=== PATIENT | male | born 1985 | race African-American/Black ===

== ENCOUNTER 2018-10-30 15:33 | Inpatient (IN) | payer OTHER ==
[2018-10-30 15:59] VITALS: BMI 31.1
--- NOTE | 2018-10-30 18:01 | HP ---
COWS - Scale Resting Pulse: 0= [place] 80 or Below Sweatin= Chills/Flushing Restless Observation: 1= Difficult to Sit Still Pupil Size: 1= Pupils >than Normal Bone or Joint Aches: 1= Mild Discomfort Runny Nose/ Eye Tearin= Nasal Congestion GI Upset > 30mins: 1= Stomach Cramp Tremor Observation: 1= Tremor [place], Not Seen Yawning Observation: 1= 1-2x During Session Anxiety or Irritability: 1=Feels Anxious/Irritable Goose Flesh Skin: 3=Piloerection COWS Score: 12 CIWA Score - Admission Criteria OASAS Guidelines: Admission for Medically Managed Detox: Requires at least one of the followin. CIWA greater than 12 2. Seizures within the past 24 hours 3. Delirium tremens within the past 24 hours 4. Hallucinations within the past 24 hours 5. Acute intervention needed for co occurring medical disorder 6. Acute intervention needed for co occurring psychiatric disorder 7. Severe withdrawal that cannot be handled at a lower level of care (continued vomiting, continued diarrhea, abnormal vital signs) requiring intravenous medication and/or fluids 8. Admission ROS [facility] - HPI Chief Complaint: heroin detox 33 yo with no medical problems, no meds, here b/c foreign policy officer asked him to come or risk [facility]. Pt states uses IV heroin every day- 1 bundle/day. Cocaine- 1-2 bags/day, denies other drug or alcohol use. LAst use yesterday- Allergies/Adverse Reactions: Allergies Allergy/AdvReac Type Severity Reaction Status Date / Time No Known Drug Allergies Allergy Verified 10/30/18 15:54 lactose AdvReac Verified 10/30/18 15:54 - Ebola screening Have you traveled outside of the country in the last 21 days: No (N) Have you had contact with anyone from an Ebola affected area: No Do you have a fever: No Patient History - Patient Medical History Hx Anemia: No Hx Asthma: No Hx Chronic Obstructive Pulmonary Disease (COPD): No Hx Cardiac Disorders: No Hx Hypertension: No Hx Seizures: No Hx Diabetes: No Hx Gastrointestinal Disorders: No Hx Genitourinary Disorders: No Hx Sexually Transmitted Disorders: No Hx Renal Disease (ESRD): No Hx Depression: No Hx Suicide Attempt: No Hx Schizophrenia: No - Patient Surgical History Past Surgical History: No Hx Neurologic Surgery: No Hx Cataract Extraction: No Hx Cardiac Surgery: No Hx Lung Surgery: No Hx Breast Surgery: No Hx Breast Biopsy: No Hx Abdominal Surgery: No Hx Appendectomy: No Hx Cholecystectomy: No Hx Genitourinary Surgery: No Hx Section: No Hx Orthopedic Surgery: No Anesthesia Reaction: No - PPD History Previous Implant?: Yes Date: 05/01/12 PPD to be Administered?: Yes - Smoking Cessation Smoking history: Current every day smoker Have you smoked in the past 12 months: Yes Aproximately how many cigarettes per day: 10 Hx Chewing Tobacco Use: No Initiated information on smoking cessation: Yes 'Breaking Loose' booklet given: 10/30/18 - Substance & Tx. History Hx Alcohol Use: No Hx Substance Use: Yes Substance Use Type: Cocaine, Heroin Hx Substance Use Treatment: Yes - Substances abused Heroin Substance route: Injection Frequency: Daily Amount used: 7bags Age of first use: 20 Date of last use: 10/30/18 Family Disease History - Family Disease History Family History: Denies (pt denies) Admission Physical Exam S - Vital Signs Vital Signs: Vital Signs - 24 hr 10/30/18 15:52 Temperature 97.1 F L Pulse Rate 58 L Respiratory 20 Rate Blood Pressure 123/82 - Physical General Appearance: Yes: Within Normal Limits HEENTM: Yes: Within Normal Limits, Other Respiratory: Yes: Within Normal Limits, Lungs Clear (eyes suffused- pt states did not sleep for many days) Neck: Yes: Within Normal Limits Cardiology: Yes: Within Normal Limits, Regular Rate, S1, S2 Abdominal: Yes: Within Normal Limits, Normal Bowel Sounds, Non Tender, Flat Back: Yes: Within Normal Limits Musculoskeletal: Yes: Within Normal Limits, full range of Motion Extremities: Yes: Within Normal Limits Neurological: Yes: Within Normal Limits, food service representative II-XII NML intact, Fully Oriented, Alert, Disoriented Lymphatic: Yes: Within Normal Limits - Diagnostic (1) Opioid use disorder Current Visit: Yes Status: Acute (2) Cocaine abuse Current Visit: No Status: Active Breathalyzer - Breathalyzer Breathalyzer: 0 Urine Drug Screen - Test Device Lot number: [id number] Expiration date: 07/18/20 - Control Is test valid?: Yes - Results Drug screen NEGATIVE: No Urine drug screen results: OG-Cocaine, MOP-Opiates, MTD-Methadone Inpatient Rehab Admission - Rehab Decision to Admit Inpatient rehab admission?: No
[2018-10-30] MEDS ORDERED: hydrOXYzine PAMOATE 25 MG CAPSULE (FP) PO PRN (18:03)
[2018-10-30] MEDS ORDERED: MAGNESIUM CITRATE 300 ML BOTTLE PO PRN (18:03)
[2018-10-30] MEDS ORDERED: MAG HYDROX/AL HYDROX/SIMETH 30 ML UNIT-DOSE CUP PO PRN (18:03)
[2018-10-30] MEDS ORDERED: METHOCARBAMOL 500 MG TABLET PO PRN (18:03)
[2018-10-30] MEDS ORDERED: MAGNESIUM HYDROX 2400MG/30ML ORAL SUSPENSION 30 ML CUP PO PRN (18:03)
[2018-10-30] MEDS ORDERED: ACETAMINOPHEN 325 MG TABLET (FP) PO PRN ×2 (18:03)
[2018-10-30] MEDS ORDERED: NICOTINE POLACRILEX 4 MG GUM BUC PRN (18:03)
[2018-10-30] MEDS ORDERED: MENTHOL/PHENOL 1 EACH UD MM PRN (18:03)
[2018-10-30] MEDS ORDERED: BISMUTH SUBSALICYLATE 524 MG/30 ML UD PO PRN (18:03)
[2018-10-30] MEDS ORDERED: IBUPROFEN 400 MG TABLET (FP) PO PRN (18:03)
[2018-10-30] MEDS ORDERED: cloNIDine HCL 0.1 MG TABLET PO PRN (18:05)
[2018-10-30] MEDS: clonazePAM 0.5 MG TABLET PO PRN (19:16)
[2018-10-30] MEDS: THIAMINE HCL 100 MG TABLET (FP) PO SCH (22:36)
[2018-10-30] MEDS: MELATONIN 5 MG TABLETS PO PRN (22:36)
[2018-10-30] MEDS ORDERED: METHADONE HCL 10 MG TABLET (FOR DETOX USE ONLY) PO ONE (23:00)
[2018-10-31 02:20] LABS: URINE APPEARANCE CLEAR; URINE BILIRUBIN NEGATIVE (NEGATIVE); URINE COLOR YELLOW; URINE GLUCOSE (UA) NEGATIVE (NEGATIVE); URINE KETONE NEGATIVE (NEGATIVE); URINE LEUK ESTERASE NEGATIVE (NEGATIVE); URINE NITRITE NEGATIVE (NEGATIVE); URINE PROTEIN NEGATIVE (NEGATIVE); URINE UROBILINOGEN 0.2 mg/dL (0.2-1.0)
[2018-10-31 09:53] LABS: HEMATOCRIT 41.6 % (35.4-49); HEMOGLOBIN 13.6 GM/dL (11.7-16.9); MCH 24.7 pg (25.7-33.7); MCHC 32.7 g/dl (32.0-35.9); MEAN CELL VOLUME 75.4 fl (80-96); MEAN PLT VOLUME 8.5 fl (7.5-11.1); PLATELET COUNT 391 K/MM3 (134-434); RBC 5.52 M/mm3 (4.00-5.60); RDW 17.4 % (11.9-15.9); WHITE BLOOD COUNT 7.6 K/mm3 (4.0-10.0)
[2018-10-31 10:00] LABS: ALBUMIN 3.4 g/dl (3.4-5.0); BILIRUBIN,TOTAL 0.3 mg/dL (0.2-1); CALCIUM 9.1 mg/dL (8.5-10.1); POTASSIUM 4.6 mmol/L (3.5-5.1); TOT PROT 6.8 g/dl (6.4-8.2)
[2018-10-31] MEDS ORDERED: METHADONE HCL 10 MG TABLET (FOR DETOX USE ONLY) PO ONE (10:00)
[2018-10-31] MEDS: PRENATAL VITAMINS W/ FOLIC ACID TABLET (FP) PO SCH (10:21)
[2018-10-31] MEDS: NICOTINE 14 MG/24 HOURS TOPICAL PATCH TD SCH (10:22)
[2018-10-31] MEDS: clonazePAM 0.5 MG TABLET PO PRN ×3 (10:22→22:21)
[2018-10-31] MEDS: hydrOXYzine PAMOATE 25 MG CAPSULE (FP) PO PRN ×3 (10:22→22:21)
--- NOTE | 2018-10-31 11:45 | PN ---
BHS COWS - Scale Resting Pulse: 0= [place] 80 or Below Sweatin= Chills/Flushing Restless Observation: 0= Sits Still Pupil Size: 0= Normal to Room Light Bone or Joint Aches: 1= Mild Discomfort Runny Nose/ Eye Tearin= Nasal Congestion GI Upset > 30mins: 1= Stomach Cramp Tremor Observation of Outstretched Hands: 2= Slight Tremor Visible Yawning Observation: 1= 1-2x During Session Anxiety or Irritability: 2=Irritable/Anxious Goose Flesh Skin: 0=Smooth Skin COWS Score: 9 BHS Progress Note (SOAP) Subjective: feeling better today social with peers on hallway and day room consider aftercare with staff Objective: 10/31/18 11:44 Vital Signs Temperature 98.1 F 10/31/18 09:13 Pulse Rate 75 10/31/18 09:13 Respiratory Rate 18 10/31/18 09:13 Blood Pressure 111/75 10/31/18 09:13 O2 Sat by Pulse Oximetry (%) Laboratory Last Values WBC 7.6 K/mm3 (4.0-10.0) 10/31/18 07:00 RBC 5.52 M/mm3 (4.00-5.60) 10/31/18 07:00 Hgb 13.6 GM/dL (11.7-16.9) 10/31/18 07:00 Hct 41.6 % (35.4-49) 10/31/18 07:00 MCV 75.4 fl (80-96) L 10/31/18 07:00 MCH 24.7 pg (25.7-33.7) L 10/31/18 07:00 MCHC 32.7 g/dl (32.0-35.9) 10/31/18 07:00 RDW 17.4 % (11.9-15.9) H 10/31/18 07:00 Plt Count 391 K/MM3 (134-434) D 10/31/18 07:00 MPV 8.5 fl (7.5-11.1) 10/31/18 07:00 Sodium 141 mmol/L (136-145) 10/31/18 07:00 Potassium 4.6 mmol/L (3.5-5.1) 10/31/18 07:00 Chloride 106 mmol/L (98-107) 10/31/18 07:00 Carbon Dioxide 29 mmol/L (21-32) 10/31/18 07:00 Anion Gap 6 MMOL/L (8-16) L 10/31/18 07:00 BUN 11 mg/dL (7-18) 10/31/18 07:00 Creatinine 1.0 mg/dL (0.55-1.3) 10/31/18 07:00 Est GFR (CKD-EPI)AfAm 115.72 10/31/18 07:00 Est GFR (CKD-EPI)NonAf 99.85 10/31/18 07:00 Random Glucose 85 mg/dL (74-106) 10/31/18 07:00 Calcium 9.1 mg/dL (8.5-10.1) 10/31/18 07:00 Total Bilirubin 0.3 mg/dL (0.2-1) 10/31/18 07:00 AST 13 U/L (15-37) L 10/31/18 07:00 ALT 22 U/L (13-61) 10/31/18 07:00 Alkaline Phosphatase 53 U/L (45-117) 10/31/18 07:00 Total Protein 6.8 g/dl (6.4-8.2) 10/31/18 07:00 Albumin 3.4 g/dl (3.4-5.0) 10/31/18 07:00 Urine Color Yellow 10/31/18 00:00 Urine Appearance Clear 10/31/18 00:00 Urine pH 7.0 (5.0-8.0) 10/31/18 00:00 Ur Specific [place] 1.004 (1.010-1.035) L 10/31/18 00:00 Urine Protein Negative (NEGATIVE) 10/31/18 00:00 Urine Glucose (UA) Negative (NEGATIVE) 10/31/18 00:00 Urine Ketones Negative (NEGATIVE) 10/31/18 00:00 Urine Blood Negative (NEGATIVE) 10/31/18 00:00 Urine Nitrite Negative (NEGATIVE) 10/31/18 00:00 Urine Bilirubin Negative (NEGATIVE) 10/31/18 00:00 Urine Urobilinogen 0.2 mg/dL (0.2-1.0) 10/31/18 00:00 Ur Leukocyte Esterase Negative (NEGATIVE) 10/31/18 00:00 lab noted Assessment: 10/31/18 11:45 withdrawal sx Plan: continue detox discuss medication assisted maintenance treatment program
[2018-10-31 12:02] LABS: RPR REACTIVE 1:2 (NONREACTIVE); TREPONEMA ANTIBODY PREVIOUSLY REACTIVE (NONREACTIVE)
[2018-10-31] MEDS: THIAMINE HCL 100 MG TABLET (FP) PO SCH (22:21)
[2018-11-01] MEDS ORDERED: METHADONE HCL 10 MG TABLET (FOR DETOX USE ONLY) PO ONE (10:00)
[2018-11-01] MEDS: PRENATAL VITAMINS W/ FOLIC ACID TABLET (FP) PO SCH (10:13)
[2018-11-01] MEDS: clonazePAM 0.5 MG TABLET PO PRN ×2 (10:13→22:07)
[2018-11-01] MEDS: NICOTINE 14 MG/24 HOURS TOPICAL PATCH TD SCH (10:13)
[2018-11-01] MEDS: hydrOXYzine PAMOATE 25 MG CAPSULE (FP) PO PRN ×2 (10:13→22:07)
--- NOTE | 2018-11-01 13:25 | PN ---
BHS COWS - Scale Resting Pulse: 1= [place] 81-100 Sweatin= Chills/Flushing Restless Observation: 1= Difficult to Sit Still Pupil Size: 0= Normal to Room Light Bone or Joint Aches: 1= Mild Discomfort Runny Nose/ Eye Tearin= None GI Upset > 30mins: 0= None Tremor Observation of Outstretched Hands: 1= Tremor [place], Not Seen Yawning Observation: 0= None Anxiety or Irritability: 1=Feels Anxious/Irritable Goose Flesh Skin: 0=Smooth Skin COWS Score: 6 BHS Progress Note (SOAP) Subjective: doing ok with methadone detox regimen mild body ache otherwise doing ok Objective: 11/01/18 13:25 Vital Signs Temperature 98.5 F 11/01/18 09:40 Pulse Rate 84 11/01/18 09:40 Respiratory Rate 20 11/01/18 09:40 Blood Pressure 122/79 11/01/18 09:40 O2 Sat by Pulse Oximetry (%) Laboratory Last Values WBC 7.6 K/mm3 (4.0-10.0) 10/31/18 07:00 RBC 5.52 M/mm3 (4.00-5.60) 10/31/18 07:00 Hgb 13.6 GM/dL (11.7-16.9) 10/31/18 07:00 Hct 41.6 % (35.4-49) 10/31/18 07:00 MCV 75.4 fl (80-96) L 10/31/18 07:00 MCH 24.7 pg (25.7-33.7) L 10/31/18 07:00 MCHC 32.7 g/dl (32.0-35.9) 10/31/18 07:00 RDW 17.4 % (11.9-15.9) H 10/31/18 07:00 Plt Count 391 K/MM3 (134-434) D 10/31/18 07:00 MPV 8.5 fl (7.5-11.1) 10/31/18 07:00 Sodium 141 mmol/L (136-145) 10/31/18 07:00 Potassium 4.6 mmol/L (3.5-5.1) 10/31/18 07:00 Chloride 106 mmol/L (98-107) 10/31/18 07:00 Carbon Dioxide 29 mmol/L (21-32) 10/31/18 07:00 Anion Gap 6 MMOL/L (8-16) L 10/31/18 07:00 BUN 11 mg/dL (7-18) 10/31/18 07:00 Creatinine 1.0 mg/dL (0.55-1.3) 10/31/18 07:00 Est GFR (CKD-EPI)AfAm 115.72 10/31/18 07:00 Est GFR (CKD-EPI)NonAf 99.85 10/31/18 07:00 Random Glucose 85 mg/dL (74-106) 10/31/18 07:00 Calcium 9.1 mg/dL (8.5-10.1) 10/31/18 07:00 Total Bilirubin 0.3 mg/dL (0.2-1) 10/31/18 07:00 AST 13 U/L (15-37) L 10/31/18 07:00 ALT 22 U/L (13-61) 10/31/18 07:00 Alkaline Phosphatase 53 U/L (45-117) 10/31/18 07:00 Total Protein 6.8 g/dl (6.4-8.2) 10/31/18 07:00 Albumin 3.4 g/dl (3.4-5.0) 10/31/18 07:00 Urine Color Yellow 10/31/18 00:00 Urine Appearance Clear 10/31/18 00:00 Urine pH 7.0 (5.0-8.0) 10/31/18 00:00 Ur Specific [place] 1.004 (1.010-1.035) L 10/31/18 00:00 Urine Protein Negative (NEGATIVE) 10/31/18 00:00 Urine Glucose (UA) Negative (NEGATIVE) 10/31/18 00:00 Urine Ketones Negative (NEGATIVE) 10/31/18 00:00 Urine Blood Negative (NEGATIVE) 10/31/18 00:00 Urine Nitrite Negative (NEGATIVE) 10/31/18 00:00 Urine Bilirubin Negative (NEGATIVE) 10/31/18 00:00 Urine Urobilinogen 0.2 mg/dL (0.2-1.0) 10/31/18 00:00 Ur Leukocyte Esterase Negative (NEGATIVE) 10/31/18 00:00 RPR Titer Reactive 1:2 (NONREACTIVE) H D 10/31/18 07:00 T.pallidum Ab ([facility]) Previously reactive (NONREACTIVE) 10/31/18 07:00 lab noted Assessment: 11/01/18 13:25 opiate withdrawal sx Plan: continue detox discuss medication assisted maintenance treatment progra
[2018-11-01] MEDS: THIAMINE HCL 100 MG TABLET (FP) PO SCH (22:07)
[2018-11-02] MEDS ORDERED: METHADONE HCL 10 MG TABLET (FOR DETOX USE ONLY) PO ONE (10:00)
[2018-11-02] MEDS: PRENATAL VITAMINS W/ FOLIC ACID TABLET (FP) PO SCH (10:07)
[2018-11-02] MEDS: clonazePAM 0.5 MG TABLET PO PRN (10:07)
[2018-11-02] MEDS: NICOTINE 14 MG/24 HOURS TOPICAL PATCH TD SCH (10:08)
--- NOTE | 2018-11-02 17:48 | PN ---
BHS COWS - Scale Resting Pulse: 1= [place] 81-100 Sweatin= Chills/Flushing Restless Observation: 0= Sits Still Pupil Size: 0= Normal to Room Light Bone or Joint Aches: 0= None Runny Nose/ Eye Tearin= None GI Upset > 30mins: 0= None Tremor Observation of Outstretched Hands: 0= None Yawning Observation: 1= 1-2x During Session Anxiety or Irritability: 0= None Goose Flesh Skin: 0=Smooth Skin COWS Score: 3 BHS Progress Note (SOAP) Subjective: Patient denies current Withdrawal / Detox symptoms and reports that he feels well overall at this time. Objective: PATIENT A & O X 3, OBSERVED AMBULATING ON UNIT UNASSISTED. IN NO ACUTE DISTRESS. 11/02/18 17:47 Vital Signs Temperature 97.2 F L 11/02/18 13:08 Pulse Rate 82 11/02/18 13:08 Respiratory Rate 18 11/02/18 13:08 Blood Pressure 129/84 11/02/18 13:08 O2 Sat by Pulse Oximetry (%) Laboratory Tests 10/31/18 10/31/18 10/31/18 00:00 07:00 07:00 WBC 7.6 RBC 5.52 Hgb 13.6 Hct 41.6 MCV 75.4 L MCH 24.7 L MCHC 32.7 RDW 17.4 H Plt Count 391 D MPV 8.5 Sodium 141 Potassium 4.6 Chloride 106 Carbon Dioxide 29 Anion Gap 6 L BUN 11 Creatinine 1.0 Est GFR (CKD-EPI)AfAm 115.72 Est GFR (CKD-EPI)NonAf 99.85 Random Glucose 85 Calcium 9.1 Total Bilirubin 0.3 AST 13 L ALT 22 Alkaline Phosphatase 53 Total Protein 6.8 Albumin 3.4 Urine Color Yellow Urine Appearance Clear Urine pH 7.0 Ur Specific [place] 1.004 L Urine Protein Negative Urine Glucose (UA) Negative Urine Ketones Negative Urine Blood Negative Urine Nitrite Negative Urine Bilirubin Negative Urine Urobilinogen 0.2 Ur Leukocyte Esterase Negative RPR Titer T.pallidum Ab ([facility]) 10/31/18 07:00 WBC RBC Hgb Hct MCV MCH MCHC RDW Plt Count MPV Sodium Potassium Chloride Carbon Dioxide Anion Gap BUN Creatinine Est GFR (CKD-EPI)AfAm Est GFR (CKD-EPI)NonAf Random Glucose Calcium Total Bilirubin AST ALT Alkaline Phosphatase Total Protein Albumin Urine Color Urine Appearance Urine pH Ur Specific [place] Urine Protein Urine Glucose (UA) Urine Ketones Urine Blood Urine Nitrite Urine Bilirubin Urine Urobilinogen Ur Leukocyte Esterase RPR Titer Reactive 1:2 H D T.pallidum Ab ([facility]) Previously reactive LABS NOTED. PATIENT NOTED TO HAVE REACTIVE RPR (MHATP PREVIOUSLY REACTIVE 1:2). PATIENT REPORTS THAT HE COMPLETED A FULL COURSE OF ANTIBIOTIC THERAPY FOR SYPHILIS IN THE PAST. 11/02/18 18:02 Assessment: 11/02/18 17:48 WITHDRAWAL SYMPTOMS. REACTIVE RPR. 11/02/18 18:03 Plan: CONTINUE DETOX. PATIENT SCHEDULED FOR D/C TOMORROW AM.
[2018-11-02] MEDS: MELATONIN 5 MG TABLETS PO PRN (22:24)
[2018-11-02] MEDS: THIAMINE HCL 100 MG TABLET (FP) PO SCH (22:24)
[2018-11-03] MEDS ORDERED: METHADONE HCL 5 MG TABLET (FOR DETOX USE ONLY) PO ONE (06:00)
[2018-11-03 06:08] VITALS: BP 120/74; PULSE 74; TEMP 97.2
--- NOTE | 2018-11-03 14:09 | DS ---
[facility] Detox Discharge Summary Admission Date: 10/30/18 Discharge Date: 11/03/18 - History Present History: Cocaine Dependence, Opioid Dependence Additional Comments: PT STATES HE HAS NO CURRENT PCP HOWEVER, PT REPORTS HE GOES TO [facility] FOR MEDICAL MANAGEMENT. D/W PATIENT TO CALL HIS INSURANCE WITH THE NUMBER ON CARD FOR ASSIGNMENT OF A PCP NEAR HIM. Pertinent Past History: SEE BELOW - Physical Exam Results Vital Signs: Vital Signs Temperature 97.2 F L 11/03/18 06:07 Pulse Rate 74 11/03/18 06:07 Respiratory Rate 18 11/03/18 06:30 Blood Pressure 120/74 11/03/18 06:07 O2 Sat by Pulse Oximetry (%) Pertinent Admission Physical Exam Findings: WITHDRAWAL SX Laboratory Tests 10/31/18 10/31/18 10/31/18 00:00 07:00 07:00 WBC 7.6 RBC 5.52 Hgb 13.6 Hct 41.6 MCV 75.4 L MCH 24.7 L MCHC 32.7 RDW 17.4 H Plt Count 391 D MPV 8.5 Sodium 141 Potassium 4.6 Chloride 106 Carbon Dioxide 29 Anion Gap 6 L BUN 11 Creatinine 1.0 Est GFR (CKD-EPI)AfAm 115.72 Est GFR (CKD-EPI)NonAf 99.85 Random Glucose 85 Calcium 9.1 Total Bilirubin 0.3 AST 13 L ALT 22 Alkaline Phosphatase 53 Total Protein 6.8 Albumin 3.4 Urine Color Yellow Urine Appearance Clear Urine pH 7.0 Ur Specific [place] 1.004 L Urine Protein Negative Urine Glucose (UA) Negative Urine Ketones Negative Urine Blood Negative Urine Nitrite Negative Urine Bilirubin Negative Urine Urobilinogen 0.2 Ur Leukocyte Esterase Negative RPR Titer T.pallidum Ab ([facility]) 10/31/18 07:00 WBC RBC Hgb Hct MCV MCH MCHC RDW Plt Count MPV Sodium Potassium Chloride Carbon Dioxide Anion Gap BUN Creatinine Est GFR (CKD-EPI)AfAm Est GFR (CKD-EPI)NonAf Random Glucose Calcium Total Bilirubin AST ALT Alkaline Phosphatase Total Protein Albumin Urine Color Urine Appearance Urine pH Ur Specific [place] Urine Protein Urine Glucose (UA) Urine Ketones Urine Blood Urine Nitrite Urine Bilirubin Urine Urobilinogen Ur Leukocyte Esterase RPR Titer Reactive 1:2 H D T.pallidum Ab ([facility]) Previously reactive - Treatment Hospital Course: Detoxed Safely - Medication Discharge Medications: Ambulatory Orders NK [No Known Home Medication] 10/30/18 - Diagnosis (1) Cocaine dependence Status: Active (2) Opioid use disorder Status: Acute - AMA Did Patient Leave Against Medical Advice: No
== END 2018-11-03 09:36 | disposition home or self-care (01) | DRG 773 ==
LOC: YASAS 15:33 → Y3N 18:37
PROVIDERS: ADMIT Surgery; ATTEND Surgery
PROC: HZ2ZZZZ Detoxification Services for Substance Abuse Treatment (ICD-10-PCS; principal; 2018-10-30)
DX: F11.23 Opioid dependence with withdrawal (principal); F14.20 Cocaine dependence, uncomplicated; F17.210 Nicotine dependence, cigarettes, uncomplicated; Z86.19 Personal history of other infectious and parasitic diseases; Z59.0 Homelessness
CPT/HCPCS: 36415; 80053; 81003; 85027; 86593; 86780

== ENCOUNTER 2019-07-12 16:43 | Inpatient (IN) | payer OTHER ==
[2019-07-12 17:31] VITALS: BMI 31.0
--- NOTE | 2019-07-12 19:24 | HP ---
COWS - Scale Resting Pulse: 1= [place] 81-100 Sweatin=Flushed/Facial Moisture Restless Observation: 1= Difficult to Sit Still Pupil Size: 2= Moderately Dilated (Pupils = 5 mm) Bone or Joint Aches: 0= None Runny Nose/ Eye Tearin= Nasal Congestion GI Upset > 30mins: 0= None Tremor Observation: 4= Gross Tremor/Twitching Yawning Observation: 0= None Anxiety or Irritability: 1=Feels Anxious/Irritable Goose Flesh Skin: 0=Smooth Skin COWS Score: 12 CIWA Score - Admission Criteria OASAS Guidelines: Admission for Medically Managed Detox: Requires at least one of the followin. CIWA greater than 12 2. Seizures within the past 24 hours 3. Delirium tremens within the past 24 hours 4. Hallucinations within the past 24 hours 5. Acute intervention needed for co occurring medical disorder 6. Acute intervention needed for co occurring psychiatric disorder 7. Severe withdrawal that cannot be handled at a lower level of care (continued vomiting, continued diarrhea, abnormal vital signs) requiring intravenous medication and/or fluids 8. Admitting History and Physical - Smoking History Smoking history: Current every day smoker Have you smoked in the past 12 months: Yes Aproximately how many cigarettes per day: 10 - Alcohol/Substance Use Hx Alcohol Use: No Admission ROS S - HPI Chief Complaint: "Here to detox from heroin - I want to stop using heroin. Also want to stop the crystal meth" Allergies/Adverse Reactions: Allergies Allergy/AdvReac Type Severity Reaction Status Date / Time No Known Drug Allergies Allergy Verified 07/12/19 17:27 lactose AdvReac Verified 10/30/18 15:54 History of Present Illness: 34 yo presents w/ opiate withdrawal symptoms seeking detox. Last visit Pk Care: 10/2018. States stayed sober for 4 months post discharge. Denies hx overdoses, seizures, blackouts. Heroin use began at age28. Currently using 7 bags - IVDU-daily. Has a Narcan kit at home. Crystal meth use began at age 29. Currently using 1 gram q2days. Nicotine use began at age 17. Smokes 3-4 cig/day. Alcohol use began at age 20. Current use is 1-12 ox beer every other day. Denies alcohol problems. PMHx: Hx + RPR - rx'd in past MHHx: Insomnia. Depression. Kartik thoughts of harming self or others. Does not want to see Psych while here. SHx: Homeless. Unemployed. Denies legal issues Search Terms: Joanie Bagley, 1985 Search Date: 07/12/2019 07:33:34 PM The Drug Utilization Report below displays all of the controlled substance prescriptions, if any, that your patient has filled in the last twelve months. The information displayed on this report is compiled from pharmacy submissions to the Department, and accurately reflects the information as submitted by the pharmacies. This report was requested by: Barbara Cintron | Reference #: [id number] There are no results for the search terms that you entered. Exam Limitations: No Limitations - Ebola screening Have you traveled outside of the country in the last 21 days: No (N) Have you had contact with anyone from an Ebola affected area: No Have you been sick,other than usual withdrawal symptoms: No Do you have a fever: No - Review of Systems Constitutional: Chills, Diaphoresis, Changes in sleep (Difficulty falling asleep ) EENT: reports: Nose Congestion Respiratory: reports: No Symptoms reported Cardiac: reports: No Symptoms Reported GI: reports: No Symptoms Reported : reports: No Symptoms Reported Musculoskeletal: reports: No Symptoms Reported Integumentary: reports: No Symptoms Reported Neuro: reports: Tremors Endocrine: reports: No Symptoms Reported Hematology: reports: No Symptoms Reported Psychiatric: reports: Orientated x3 (Missed date by 1 day), Agitated, Anxious, Depressed (Denies thoughts of harming self or others) Patient History - Patient Medical History Hx Anemia: No Hx Asthma: No Hx Chronic Obstructive Pulmonary Disease (COPD): No Hx Cardiac Disorders: No Hx Hypertension: No Hx Seizures: No Hx Diabetes: No Hx Gastrointestinal Disorders: No Hx Genitourinary Disorders: No Hx Sexually Transmitted Disorders: No Hx Renal Disease (ESRD): No Hx Depression: No Hx Suicide Attempt: No Hx Schizophrenia: No - Patient Surgical History Past Surgical History: No Hx Neurologic Surgery: No Hx Cataract Extraction: No Hx Cardiac Surgery: No Hx Lung Surgery: No Hx Breast Surgery: No Hx Breast Biopsy: No Hx Abdominal Surgery: No Hx Appendectomy: No Hx Cholecystectomy: No Hx Genitourinary Surgery: No Hx Section: No Hx Orthopedic Surgery: No Anesthesia Reaction: No - PPD History Previous Implant?: Yes Documented Results: Negative w/proof Implanted On Prior R Admission?: Yes Date: 11/01/18 PPD to be Administered?: No - Smoking Cessation Smoking history: Current every day smoker Have you smoked in the past 12 months: Yes Aproximately how many cigarettes per day: 10 Hx Chewing Tobacco Use: No Initiated information on smoking cessation: Yes 'Breaking Loose' booklet given: 07/12/19 - Substance & Tx. History Hx Alcohol Use: No Hx Substance Use: Yes Substance Use Type: Heroin Hx Substance Use Treatment: Yes (detox, rehab. Denies MAT) - Substances abused Heroin Substance route: Injection Frequency: Daily Amount used: 7bags Age of first use: 28 Date of last use: 07/11/19 Admission Physical Exam BHS - Vital Signs Vital Signs: Vital Signs - 24 hr 07/12/19 17:28 Temperature 0 F L Pulse Rate 100 H Respiratory 18 Rate Blood Pressure 155/98 - Physical General Appearance: Yes: Nourished, Mild Distress, Tremorous, Irritable, Sweating (Increased facial moisture) HEENTM: Yes: EOMI, Hearing grossly Normal, Normocephalic, Normal Voice, JULISSA ( Pupils = 5 mm), Pharynx Normal Respiratory: Yes: Lungs Clear (Pulse Ox = 99 %), Normal Breath Sounds, No Respiratory Distress Neck: Yes: No masses,lesions,Nodules, Supple Breast: Yes: Breast Exam Deferred Cardiology: Yes: Regular Rhythm, Regular Rate, S1, S2 Abdominal: Yes: Non Tender, Flat, Soft, Increased Bowel Sounds Genitourinary: Yes: Within Normal Limits Back: Yes: Normal Inspection Musculoskeletal: Yes: full range of Motion, Gait Steady Extremities: Yes: Normal Capillary Refill, Normal Range of Motion, Tremors Neurological: Yes: manufacturing associate II-XII NML intact, Fully Oriented, Alert, Motor Strength 5/5, Normal Mood/Affect, Normal Response Integumentary: Yes: Normal Color, Warm, Moist (Increased facial moisture), Track Neri (Old and new track makrs (R) arm. No increased warmth or erythema.) , Other (Superficial scrape (R) clayton w/ pink granualtion tissue. No discharge.) Lymphatic: Yes: Within Normal Limits - Diagnostic (1) Hx of positive serological reaction for syphilis Current Visit: Yes Status: Chronic (2) Nicotine dependence, unspecified, uncomplicated Current Visit: Yes Status: Chronic Qualifiers: Nicotine product type: cigarettes Qualified Code(s): F17.210 - Nicotine dependence, cigarettes, uncomplicated (3) Opioid dependence with withdrawal Current Visit: Yes Status: Acute (4) Methamphetamine dependence Current Visit: Yes Status: Chronic (5) Alcohol abuse Current Visit: Yes Status: Active (6) Abrasion of leg, right Current Visit: Yes Status: Chronic Qualifiers: Encounter type: subsequent encounter Qualified Code(s): S80.811D - Abrasion , right lower leg, subsequent encounter (7) IVDU (intravenous drug user) Current Visit: Yes Status: Chronic Cleared for Admission S - Detox or Rehab [facility] Level of Care: Medically Managed Detox Regimen/Protocol: Methadone Claeared for Rehab Admission: No Breathalyzer - Breathalyzer Breathalyzer: 0 Urine Drug Screen - Test Device Lot number: [id number] Expiration date: 01/16/21 - Control Is test valid?: Yes - Results Drug screen NEGATIVE: No Urine drug screen results: MET-Methamphetamine, AMP-Amphetamines, MOP-Opiates, MDMA-Ecstasy Inpatient Rehab Admission - Rehab Decision to Admit Inpatient rehab admission?: No
[2019-07-12] MEDS ORDERED: MAGNESIUM HYDROX 2400MG/30ML ORAL SUSPENSION 30 ML CUP PO PRN (19:51)
[2019-07-12] MEDS ORDERED: NICOTINE POLACRILEX 2 MG GUM BUC PRN (19:51)
[2019-07-12] MEDS ORDERED: METHOCARBAMOL 500 MG TABLET PO PRN (19:51)
[2019-07-12] MEDS ORDERED: cloNIDine HCL 0.1 MG TABLET PO PRN (19:51)
[2019-07-12] MEDS ORDERED: MAGNESIUM CITRATE 300 ML BOTTLE PO PRN (19:51)
[2019-07-12] MEDS ORDERED: ACETAMINOPHEN 325 MG TABLET (FP) PO PRN ×2 (19:51)
[2019-07-12] MEDS ORDERED: BISMUTH SUBSALICYLATE 524 MG/30 ML UD PO PRN (19:51)
[2019-07-12] MEDS ORDERED: MAG HYDROX/AL HYDROX/SIMETH 30 ML UNIT-DOSE CUP PO PRN (19:51)
[2019-07-12] MEDS ORDERED: MENTHOL/PHENOL 1 EACH UD MM PRN (19:51)
[2019-07-12] MEDS ORDERED: IBUPROFEN 400 MG TABLET (FP) PO PRN (19:51)
[2019-07-12] MEDS ORDERED: METHADONE HCL 10 MG TABLET (FOR DETOX USE ONLY) PO ONE (22:00)
[2019-07-12] MEDS ORDERED: THIAMINE HCL 100 MG TABLET (FP) PO SCH (22:00)
[2019-07-12] MEDS ORDERED: MELATONIN 5 MG TABLETS PO PRN (22:00)
[2019-07-12] MEDS ORDERED: QUEtiapine FUMARATE 50 MG TABLET PO PRN (22:00)
[2019-07-12] MEDS: BACITRACIN 15 GM TUBE TOPICAL OINTMENT TP SCH (22:24)
[2019-07-13 06:18] VITALS: BP 122/77; PULSE 80; TEMP 99.1
[2019-07-13] MEDS ORDERED: METHADONE HCL 10 MG TABLET (FOR DETOX USE ONLY) ONE (09:14)
[2019-07-13] MEDS ORDERED: METHADONE HCL 5 MG TABLET (FOR DETOX USE ONLY) ONE (09:14)
[2019-07-13] MEDS: BACITRACIN 15 GM TUBE TOPICAL OINTMENT TP SCH (09:45)
[2019-07-13] MEDS ORDERED: PRENATAL VITAMINS W/ FOLIC ACID TABLET (FP) PO SCH (10:00)
[2019-07-13] MEDS ORDERED: NICOTINE 14 MG/24 HOURS TOPICAL PATCH TD SCH (10:00)
[2019-07-13] MEDS ORDERED: METHADONE (DETOX) 20 MG, METHADONE (DETOX) 5 MG PO ONE (10:00)
--- NOTE | 2019-07-13 10:37 | EKG ---
Test Reason : Blood Pressure : / mmHG Vent. Rate : 077 BPM Atrial Rate : 077 BPM P-R Int : 140 ms QRS Dur : 100 ms QT Int : 372 ms P-R-T Axes : 060 016 025 degrees QTc Int : 420 ms NORMAL SINUS RHYTHM NORMAL ECG NO PREVIOUS ECGS AVAILABLE Confirmed by RAFI EL MD ([id number]) on 07/13/2019 10:37:25 AM Referred By: Abdullahi Whalen Confirmed By:RAFI EL MD
[2019-07-13 11:16] LABS: HEMATOCRIT 40.5 % (35.4-49); HEMOGLOBIN 13.1 GM/dL (11.7-16.9); MCH 23.9 pg (25.7-33.7); MCHC 32.3 g/dl (32.0-35.9); MEAN CELL VOLUME 73.9 fl (80-96); MEAN PLT VOLUME 8.6 fl (7.5-11.1); PLATELET COUNT 307 K/MM3 (134-434); RBC 5.47 M/mm3 (4.00-5.60); RDW 18.6 % (11.9-15.9)
[2019-07-13 11:35] LABS: ALBUMIN 3.8 g/dl (3.4-5.0); BILIRUBIN,TOTAL 0.5 mg/dL (0.2-1); CALCIUM 9.2 mg/dL (8.5-10.1); TOT PROT 7.8 g/dl (6.4-8.2)
--- NOTE | 2019-07-13 13:23 | DS ---
[facility] Detox Discharge Summary Admission Date: 07/12/19 Discharge Date: 07/13/19 (Pt left AMA) - History Present History: Opioid Dependence Additional Comments: As per H&P: "34 yo presents w/ opiate withdrawal symptoms seeking detox. Last visit [facility]: 10/2018. States stayed sober for 4 months post discharge. Denies hx overdoses, seizures, blackouts. Heroin use began at age28. Currently using 7 bags - IVDU-daily. Has a Narcan kit at home. Crystal meth use began at age 29. Currently using 1 gram q2days. Nicotine use began at age 17. Smokes 3-4 cig/day. Alcohol use began at age 20. Current use is 1-12 ox beer every other day. Denies alcohol problems". Pt left AMA. Pt did not complete the detox protocol. As per medical staff director, pt broke the locker, took his belongings and walked off the unit. Unable to do any assessment at this time. During morning rounds, pt was alert and oriented x3 and in no respiratory distress. Pertinent Past History: h/o heroin use disorder. - Physical Exam Results Vital Signs: Vital Signs Temperature 99.1 F 07/13/19 06:18 Pulse Rate 80 07/13/19 06:18 Respiratory Rate 18 07/13/19 06:18 Blood Pressure 122/77 07/13/19 06:18 O2 Sat by Pulse Oximetry (%) Vital Signs 07/13/19 06:18 Temperature 99.1 F Pulse Rate 80 Respiratory 18 Rate Blood Pressure 122/77 Laboratory Last Values WBC 9.0 K/mm3 (4.0-10.0) 07/13/19 08:00 RBC 5.47 M/mm3 (4.00-5.60) 07/13/19 08:00 Hgb 13.1 GM/dL (11.7-16.9) 07/13/19 08:00 Hct 40.5 % (35.4-49) 07/13/19 08:00 MCV 73.9 fl (80-96) L 07/13/19 08:00 MCH 23.9 pg (25.7-33.7) L 07/13/19 08:00 MCHC 32.3 g/dl (32.0-35.9) 07/13/19 08:00 RDW 18.6 % (11.9-15.9) H 07/13/19 08:00 Plt Count 307 K/MM3 (134-434) D 07/13/19 08:00 MPV 8.6 fl (7.5-11.1) 07/13/19 08:00 Sodium 138 mmol/L (136-145) 07/13/19 08:00 Potassium 4.0 mmol/L (3.5-5.1) 07/13/19 08:00 Chloride 101 mmol/L (98-107) 07/13/19 08:00 Carbon Dioxide 31 mmol/L (21-32) 07/13/19 08:00 Anion Gap 6 MMOL/L (8-16) L 07/13/19 08:00 BUN 13.0 mg/dL (7-18) 07/13/19 08:00 Creatinine 1.0 mg/dL (0.55-1.3) 07/13/19 08:00 Est GFR (CKD-EPI)AfAm 114.91 07/13/19 08:00 Est GFR (CKD-EPI)NonAf 99.15 07/13/19 08:00 Random Glucose 81 mg/dL (74-106) 07/13/19 08:00 Calcium 9.2 mg/dL (8.5-10.1) 07/13/19 08:00 Total Bilirubin 0.5 mg/dL (0.2-1) 07/13/19 08:00 AST 20 U/L (15-37) 07/13/19 08:00 ALT 34 U/L (13-61) 07/13/19 08:00 Alkaline Phosphatase 64 U/L (45-117) 07/13/19 08:00 Total Protein 7.8 g/dl (6.4-8.2) 07/13/19 08:00 Albumin 3.8 g/dl (3.4-5.0) 07/13/19 08:00 Labs noted. Pertinent Admission Physical Exam Findings: Withdrawal symptoms. - Treatment Hospital Course: Detox Protocol Followed - Medication Discharge Medications: Ambulatory Orders NK [No Known Home Medication] 10/30/18 - Diagnosis (1) Opioid dependence with withdrawal Current Visit: Yes Status: Acute (2) Hx of positive serological reaction for syphilis Current Visit: Yes Status: Chronic (3) IVDU (intravenous drug user) Current Visit: Yes Status: Chronic (4) Methamphetamine dependence Current Visit: Yes Status: Chronic (5) Nicotine dependence, unspecified, uncomplicated Current Visit: Yes Status: Chronic Qualifiers: Nicotine product type: cigarettes Qualified Code(s): F17.210 - Nicotine dependence, cigarettes, uncomplicated (6) Alcohol dependence Current Visit: No Status: Active - AMA Did Patient Leave Against Medical Advice: Yes
[2019-07-14] MEDS ORDERED: METHADONE HCL 10 MG TABLET (FOR DETOX USE ONLY) PO ONE (10:00)
[2019-07-14 14:49] LABS: TREPONEMA ANTIBODY PREVIOUSLY REACTIVE (NONREACTIVE)
[2019-07-15 09:38] LABS: RPR REACTIVE 1:2 (NONREACTIVE)
[2019-07-15] MEDS ORDERED: METHADONE (DETOX) 10 MG, METHADONE (DETOX) 5 MG PO ONE (10:00)
[2019-07-16] MEDS ORDERED: METHADONE HCL 10 MG TABLET (FOR DETOX USE ONLY) PO ONE (10:00)
[2019-07-17] MEDS ORDERED: METHADONE HCL 5 MG TABLET (FOR DETOX USE ONLY) PO ONE (06:00)
== END 2019-07-13 10:45 | disposition left against medical advice (07) | DRG 770 ==
LOC: YASAS 16:43 → Y3N 20:07
PROVIDERS: ADMIT Allergy & Immunology; ATTEND Allergy & Immunology
PROC: HZ2ZZZZ Detoxification Services for Substance Abuse Treatment (ICD-10-PCS; principal; 2019-07-12)
DX: F11.23 Opioid dependence with withdrawal (principal); F15.20 Other stimulant dependence, uncomplicated; F10.10 Alcohol abuse, uncomplicated; F17.210 Nicotine dependence, cigarettes, uncomplicated; Z87.438 Personal history of other diseases of male genital organs; Z91.011 Allergy to milk products; Z56.0 Unemployment, unspecified; Z59.0 Homelessness
CPT/HCPCS: 36415; 80053; 85027; 86593; 86780; 93005; 93010